=== PATIENT | female | born 1990 | race Caucasian/White ===

== ENCOUNTER 2022-07-06 12:15 | Outpatient (CLI) | payer OTHER, SELFPAY ==
--- NOTE | 2022-07-06 12:15 | CRLHL7_ITS ---
For Patients: As a result of the Century Cures Act, medical imaging exams and procedure reports are released immediately into your electronic medical record. You may view this report before your referring provider. If you have questions, please contact your health care provider. INDICATION: First trimester scan, establish dates. COMPARISON: None. TECHNIQUE: Real-time renner-scale imaging of the pelvis was performed. FINDINGS: Sonographic imaging demonstrates a single living intrauterine gestation. The embryo demonstrates a regular cardiac rate measuring 171 beats per minute. The embryo`s crown-rump length measurement of 2.3 cm corresponds to a gestational age of 9 weeks 0 days with a sonographic due date of February 08, 2023. There is a normal-appearing yolk sac measuring up to 3.1 mm. There are no gross abnormalities noted within the embryo at this early state of development. The placenta has not yet developed. The gestational sac has a normal appearance. The amount of fluid within the sac appears appropriate for gestational age. The cervix is closed. The myometrium appears normal. The ovaries are of normal size. The right ovary measures 3.1 x 2.0 x 2.6 cm and contains a small corpus luteum cyst of . The left ovary measures 3.5 x 1.8 x 1.8 cm. There is a small amount of subchorionic hemorrhage inferior to the gestational sac measuring 3 x 6 x 18 mm. There are no suspicious fluid collections noted in the cul-de-sac. IMPRESSION: Normal first trimester OB ultrasound exam. Gestational age calculated at 9 weeks 0 days with a sonographic due date of February 08, 2023. Dictated by Dane Olivo MD @ 07/06/2022 7:00:03 PM (Electronically Signed)
== END 2022-07-06 12:16 | disposition home or self-care (01) ==
LOC: US 12:18
PROVIDERS: Visit Provider Registered Nurse
DX: Z34.91 Encounter for supervision of normal pregnancy, unspecified, first trimester (principal); Z3A.09 9 weeks gestation of pregnancy; O20.9 Hemorrhage in early pregnancy, unspecified
CPT/HCPCS: 76817; 86592; 86703; 86762; 86787; 86803; 86850; 86900; 86901; 87086; 87340; 87491; 87591

== ENCOUNTER 2022-09-01 11:28 | Outpatient (CLI) | payer OTHER, SELFPAY ==
[2022-09-04 08:04] LABS: Dating Other; Family Hx Neural Tube Defect No; Insulin Req Maternal Diabetes No; Maternal Race Nonblack; Maternal Screen Interpretation Screen Neg; MoM for AFP 0.87; Number of Fetuses Singleton; Patient's AFP 32 ng/mL; Patient's DIA 166 pg/mL; Smoking No
[2022-10-12 08:11] LABS: Client Provided Matern Weight 170
[2022-10-12 08:14] LABS: Client Provid Current Smoking NO; Client Provid Diabetic Status NO; Client Provided # of Fetuses 1; Client Provided Valp/Carb NO
[2022-10-12 08:15] LABS: Client Provid Prev TrisomyPreg NO; Client Provided Fam Hx of NTD NO; Client Provided InVitro Fertil NO; Client Provided Rpt Specimen NO
== END 2022-09-01 11:29 | disposition home or self-care (01) ==
PROVIDERS: Visit Provider Obstetrics & Gynecology
DX: Z34.92 Encounter for supervision of normal pregnancy, unspecified, second trimester (principal); Z3A.17 17 weeks gestation of pregnancy
CPT/HCPCS: 81511

== ENCOUNTER 2022-09-27 13:53 | Outpatient (CLI) | payer OTHER, SELFPAY ==
--- NOTE | 2022-09-27 14:00 | CRLHL7_ITS ---
For Patients: As a result of the Century Cures Act, medical imaging exams and procedure reports are released immediately into your electronic medical record. You may view this report before your referring provider. If you have questions, please contact your health care provider. INDICATION: Evaluate anatomy. COMPARISON: none TECHNIQUE: Real time renner scale imaging of the fetus was performed as well as color Doppler analysis of the umbilical vessels. FINDINGS: Sonographic imaging demonstrates a single living intrauterine gestation. Fetus demonstrates a regular cardiac rate of 147 beats per minute. Fetus has a vertex position. The placenta lies anterior fundal without evidence of placenta previa. The edge of the placenta is located 8.2 cm from the internal cervical os. Amniotic fluid volume appears normal. Single deepest vertical pocket: 4.3 cm. The cervix is closed and measures 4.7 cm in length. The composite ultrasound gestational age is calculated at 20 weeks 4 days with an estimated sonographic due date of 02/10/2023. The estimated weight is 361 grams which lies at the 29th %. The following biometric measurements were obtained: Biparietal diameter: 4.6 cm/20 weeks 0 days 16th% Head circumference: 18.0 cm/20 weeks 3 days 24th% Abdominal circumference: 16.4 cm/21 weeks 3 days 63rd% Femur length: 3.1 cm/19 weeks 4 days 8th% The HC/AC ratio measures: 1.10 range (1.07-1.25) On anatomic survey, there is a normal appearance of the cerebral ventricles, cavum septi pellucidi, cisterna magna and cerebellum. The nose, lips, and facial profile appear normal. The cervical, thoracic and lumbar spine are well visualized and appear normal. Echogenic intracardiac focus within the left ventricle. The left and right ventricular outflow tracts appear normal. The diaphragm and stomach appear normal. The kidneys and bladder also appear normal. There is a normal three-vessel cord and there is an eccentric cord insertion site. The four extremities appear normal. IMPRESSION: Concordance of clinical and sonographic dating. Intracardiac echogenic focus within the left ventricle. Remainder of the anatomic survey is normal. Level 2 ultrasound should be considered. Dictated by Monico Yeager MD @ 09/28/2022 9:40:36 AM (Electronically Signed)
== END 2022-09-27 13:54 | disposition home or self-care (01) ==
LOC: US 13:54
PROVIDERS: Visit Provider Obstetrics & Gynecology
DX: Z34.92 Encounter for supervision of normal pregnancy, unspecified, second trimester (principal); Z3A.20 20 weeks gestation of pregnancy
CPT/HCPCS: 76805

== ENCOUNTER 2022-11-17 09:56 | Outpatient (CLI) | payer OTHER, SELFPAY | END 2022-11-17 09:57 | disposition home or self-care (01) | LOC: NFLDREF 11-19 04:38 | PROVIDERS: PCP Obstetrics & Gynecology; Referring Provider Obstetrics & Gynecology; Visit Provider Obstetrics & Gynecology | DX: Z34.93 Encounter for supervision of normal pregnancy, unspecified, third trimester (principal); Z3A.28 28 weeks gestation of pregnancy | CPT/HCPCS: 86592 ==

== ENCOUNTER 2023-02-01 07:11 | Inpatient (IN) | payer OTHER, SELFPAY ==
[2023-02-01] VITALS (26 sets, daily range): BP systolic 101–123; BP diastolic 50–72; PULSE 63–128; RESP 16–18; TEMP 36.2–36.9; O2SAT 94–100; BMI 33.4
[2023-02-01] MEDS: LACTATED RINGERS 1000 ML 1,000 ML IV ×3 (07:30→12:19)
[2023-02-01 07:42] LABS: Hemoglobin* 10.5 gm/dL (12.0-16.0)
--- NOTE | 2023-02-01 08:36 | W.ANESCHARGE ---
Anesthesia Charges Start Date/Time Anesthesia Start Date: 02/01/23 Anesthesia Start Time: 09:19 Stop Date/Time Anesthesia Stop Date: 02/01/23 Anesthesia Stop Time: 10:58
--- NOTE | 2023-02-01 09:20 | P.LDBA_ITS ---
Subjective History of Present Illness Time Seen by Provider: 09:20 Date Seen: 02/01/23 Narrative: Yen is being admitted to Labor and Delivery for a scheduled repeat low- transverse . She is a 32 year old at 39 and 0/7 weeks gestation. Her full history and physical was dictated by Dr. Rupal Shields MD on 01/12/2023. Please see this for details. OB PROBLEM LIST: ANGIE: 02/08/2023 by LMP Spouse: Zoran. Daughters: Marleni and Minna. Baby: [place] Gender. contraception: Mirena IUD 1. H/o x 2: both delivered at [facility] * First was for arrest of dilation, 2nd was a scheduled repeat * Plan repeat : Scheduling request form sent out on 11/02/22, requested Tuesday02/01/23 with [facility]. 2. History of anxiety/depression: * Not treated in her 1st * Was treated with sertraline in her 2nd which she did not feel was very helpful. (50mg dose) * Prescription for sertraline 50mg QD on 01/05/23. * Plan to increase dose to 100mg discharge from the hospital or at her 2 week pp visit if needed. 3. Single intracardiac echogenic focus on 20 week ultrasound * Normal quadruple screen on 09/01/2022: Downs 1/766, ONTD < 1/10,000, Trisomy 18 < 1/10,000 * Declined LVL 2 USN. OB - Problem Based A/P Additional Plan (1) Status post repeat low transverse section: Status: Acute Plan 1. Will be heading to the operating room momentarily. OB Exam Physical Exam Vital signs: Temp Pulse Resp BP Pulse Ox 98.5 F 75 18 123/64 96 02/01/23 07:40 02/01/23 07:40 02/01/23 07:40 02/01/23 07:40 02/01/23 07:40 Narrative: GENERAL APPEARANCE: Pleasant, [race], well-groomed woman in no acute distress. VITAL SIGNS: as noted in nursing notes LUNGS: Clear to auscultation bilaterally without wheezes, rales or rhonchi. HEART: Regular rate and rhythm with normal S1 and S2. No gallop, rub or murmur. ABDOMEN: Gravid. Soft, nontender, nondistended, with normal bowels sounds throughout. EXTREMITIES: No cyanosis, clubbing, or edema. No varicosities. NEUROLOGIC: Normal gait and balance. Normal deep tendon reflexes at bilateral patella 2+/2, equal without clonus. PSYCHIATRIC: alert and oriented x3. Normal speech pattern, eye contact and affect. SKIN: Warm, dry, and well perfused. Good turgor. No lesions, nodules or rashes.
--- NOTE | 2023-02-01 09:23 | P.PCN_ITS ---
Procedure Note Time Seen by Provider: : Date Seen: 02/01/23 Date of procedure: 02/01/23 Will [facility] bill your pro fee for this procedure?: Yes Procedure: Preoperative diagnosis: 32-year-old 3 para 2001 at 39 and 0/7 weeks admitted for a scheduled repeat low transverse section. Postoperative diagnosis: Same Procedure: Repeat low-transverse section. Anesthesia: Spinal Surgeon: Rupal Shields MD Senior Sales Administrator: LG Toro Quantitative blood loss: 880 mL IVF: 2500 mL UOP: 50 mL, clear urine at the end of the procedure Drain(s): Vuong to gravity. Specimen: None Findings: A live female was delivered from the direct OA position at 9:57 a.m.. Apgars were 5 at 1 min. , 7 at 5 min. and 8 at 10 minutes, respectively. Infant weight: Pending. Nuchal cord(s): No. The placenta was delivered spontaneous and complete at 9:59 a.m. Amniotic fluid: Clear, large amount. Normal uterus, fallopian tubes and ovaries were noted. Other findings: Thick adhesions of the rectus muscles to the fascia and bladder reflection. The subcutaneous tissue was also very scarred. Mild uterine atony was noted after delivery of the placenta which was treated with fundal massage, 40 units Pitocin in 1 L IV fluid wide open and 1 dose of Methergine 0.2 mg IM. Procedure: Yen was taken to the OR where spinal anesthetic was found be adequate. A Vuong catheter was placed. The patient was then placed in the dorsal supine position with a leftward tilt. She was then prepped and draped in a normal sterile manner. A Pfannenstiel skin incision was made and carried through sharply to the underlying layer of fascia. Fascia was incised in the midline and this incision carried laterally with Peterson scissors. The superior aspect of fascial incision was grasped with Christopher clamps, tented up, and the rectus muscles dissected off with a combination of blunt, and sharp dissection. The rectus muscles were in the midline. The peritoneum was identified, grasped with 2 Kacey clamps and entered sharply with Metzenbaum scissors. This opening was extended with a combination of sharp dissection in layers and blunt pressure. An Hiram-O self-retaining retractor was placed. A bladder flap was not created. Uterus was incised in a low transverse manner in the midline. This incision carried laterally with blunt pressure on the inferior and superior aspects of the uterine incision. The amniotic sac was ruptured. The 's head and body were delivered atraumatically. The infant was shown to the patient and her support person. The umbilical cord was clamped and cut after a 32nd delay. The was then handed to waiting nursing staff, the nursing staff called for a pediatric staff to assess the due to long transition period. The placenta was delivered spontaneously. The uterus was cleared of clots and debris. The uterine incision was re-approximated with the uterus in vivo. The 1st layer using 0-Vicryl in a running, locked manner. The 2nd layer using 0-Monocryl in a running, vertical, imbricating layer. Additional sutures needed for hemostasis: Yes, 3 figure of 8 sutures using 2-0 chromic. Erica was applied to the uterine incision. Excellent hemostasis was confirmed. The Hiram retractor was removed. The peritoneum and rectus muscles were not reapproximated. The rectus muscles were then closely inspected to verify hemostasis. Hemostasis was obtained with bipolar cautery. The fascia was then reapproximated using 0-Maxon loop in a running manner. The subcutaneous tissue was then irrigated with saline and hemostasis obtained with bipolar cautery. The scarred, subcutaneous tissue was undermined with bipolar cautery. The subcutaneous tissue was reapproximated using 3-0 plain gut interrupted sutures. The skin was reapproximated using 4-0 Monocryl in a running subcuticular manner. Exophin skin adhesive and a Mepiplex dressing were applied. The patient tolerated this procedure well. Sponge, lap and instrument counts were correct x2 active to the procedure. Patient was taken to the recovery area in stable condition. The patient received 2 g of IV Ancef prior to skin incision.
[2023-02-01] MEDS: CEFAZOLIN 2 GM INJ IVP (09:30)
--- NOTE | 2023-02-01 11:01 | W.ANESCHARGE ---
Anesthesia Charges Start Date/Time Anesthesia Start Date: 02/01/23 Anesthesia Start Time: 09:19 Stop Date/Time Anesthesia Stop Date: 02/01/23 Anesthesia Stop Time: 10:58
--- NOTE | 2023-02-01 11:08 | W.PM.NB ---
Nerve Block Nerve Block Time Seen by Provider: 10:50 Date Seen: 02/01/23 Type of block requested by surgeon for post-operative analgesia: TAP Side: bilateral Time out performed: Yes Verification of patient name: Yes Verification of date of : Yes Site marking: site marked Name of person performing procedure: Jaime Continuous monitoring Was continuous monitoring of O2 sat, B/P, alarm security or surveillance monitor, recorded every 15 minutes?: Yes Procedure Checklist: sterile prep, needles and gloves Ultrasound guided. Images saved: Yes Medications given in 5ml increments after negative aspiration: Marcaine %: 0.25 mL: 30 Needle gauge: 20 and Exparel mL: 10 Patient tolerated procedure well: Yes Additional comments: Needle noted adjacent to nerve Block Charges Block Charge (with Pro Fee): TAP Bilateral Use of Ultrasound Machine for Block: Yes- US Guidance/pain block
[2023-02-01] MEDS: KETOROLAC 30 MG/ML inj IVP (17:20)
[2023-02-01] MEDS: METHYLERGONOVINE MALEATE 0.2 MG TABLET PO (17:42)
[2023-02-01] MEDS: miSOPROStoL 800 MCG/4 TABLET 600 MCG PR (17:42)
[2023-02-01 17:47] LABS: Basophils Percent Auto 0.2 % (0.0-3.0); Eosinophils Percent Auto 0.1 % (0.0-7.0); Immature Granulocytes Pct Auto 0.9 %; Lymphocytes Percent Auto 7.4 % (20-44); Mean Corpuscular HGB Conc 33 gm/dL (32-36); Mean Corpuscular Hemoglobin 28 pg (26-34); Mean Corpuscular Volume 83 fL (80-100); Monocytes Percent Auto 7.8 % (0.0-11.0); Neutrophils Percent Auto 83.6 % (42.0-72.0); Platelet Count* 238 K/uL (140-440); RDW Coefficient of Variation % 12.9 % (11.5-15.5); Red Blood Count 3.26 m/uL (4.00-5.20); White Blood Count* 15.19 K/uL (4.50-11.00)
[2023-02-01 18:05] LABS: Slide Review Acceptable Review (Acceptable); Slide Review Reflex No
[2023-02-01 18:30] LABS: INR 1.06 (0.91-1.10); Partial Thromboplastin Time* 28 Seconds (23-33); Prothrombin Time 14.4 Seconds
[2023-02-01 18:31] LABS: Fibrinogen* 260 mg/dL (200-450)
[2023-02-01] MEDS: FERROUS SULFATE 325 MG TABLET 650 MG PO (20:38)
[2023-02-02] VITALS (12 sets, daily range): BP systolic 101–109; BP diastolic 54–72; PULSE 77–81; RESP 16; TEMP 36.4–36.6; O2SAT 94–96
[2023-02-02] MEDS: METHYLERGONOVINE MALEATE 0.2 MG TABLET PO ×2 (00:06→05:20)
[2023-02-02] MEDS: KETOROLAC 30 MG/ML inj IVP ×4 (00:07→18:27)
[2023-02-02 05:14] LABS: Hemoglobin* 8.8 gm/dL (12.0-16.0)
--- NOTE | 2023-02-02 07:15 | PM.OBPNCS1 ---
OB - PN: A/P Assessment and Plan (1) Status post repeat low transverse section: Status: Acute Plan day: 1 Plan: routine postop care Comments: Assessment/Plan G 3 P 3 status post repeat , complicated by increased bleeding PP. 1. ?Continue route PP cares 2. ?. ?May see if desired 3. ?Anticipate discharge home tomorrow or the following day per pt preference 4. ?Acute anemia. ?Iron supplement ordered OB - PN: Subj Subjective Time Seen by Provider: 07:15 Date Seen: 02/02/23 Interval history: Yen is a 32 y.o. who was admitted to [facility] & [facility] for repeat . ?She had a complicated by increased bleeding PP. ? Narrative: The patient feels well. ?The pain is well controlled with current medications. ?She has no new complaints. ?She is breast feeding and reports things are overall going well.? Is supplementing to help keep baby's sugars up. the patient has done well.? Vitals have been stable.? She has remained afebrile.? Has a good appetite, is tolerating a general diet. ?She is voiding without difficulty.? She is passing gas and has not had a bowel movement.? She is ambulating and denies any dizziness.? Has Small amount of rubra lochia. OB - PN: Obj Exam Physical Exam: Vital signs: Temp Pulse Resp BP Pulse Ox O2 Del Method 97.6 F 77 16 103/62 94 Room Air 02/02/23 00:20 02/02/23 04:54 02/02/23 04:54 02/02/23 04:54 02/02/23 04:54 02/02/23 04:54 Narrative: VSS. Afebrile GENERAL APPEARANCE: ?normal affect, alert, no distress MOOD: ?appropriate HEENT: normocephalic, neck supple, full ROM CHEST: ?Symmetrical chest wall movement. ?Normal respiratory effort. ?Clear to auscultation HEART: ?regular rate and rhythm ABDOMEN: ?soft, non-tender. Uterine fundus is firm, at Umbilicus, Midline and is appropriate for the stage of recovery. ?Bowel sounds present. EXTREMITIES: ?normal and trace edema SKIN: warm, dry. Dressing on, clean/dry/intact. No signs of infection noted. Urinary Catheter Management: Urethral: Cath placed during this visit: yes, but has since been removed by the nurse Reason for continuing: decision to DC catheter Insertion date: 02/01/23 Insertion time: 09:28 Removal date: 02/01/23 Removal time: 21:00 OB - PN: Obj Data Labs Labs: Laboratory Results - last 24 hr 02/01/23 02/01/23 02/02/23 07:36 17:39 05:05 WBC 15.19 H RBC 3.26 L Hgb 10.5 L 9.0 L 8.8 L Hct 27.0 L MCV 83 MCH 28 MCHC 33 RDW Coeff of Maria M 12.9 Plt Count 238 Neut % (Auto) 83.6 H Lymph % (Auto) 7.4 L [place] % (Auto) 7.8 Eos % (Auto) 0.1 Baso % (Auto) 0.2 Neut # (Auto) 12.70 H Lymph # (Auto) 1.10 [place] # (Auto) 1.20 H Eos # (Auto) 0.00 Baso # (Auto) 0.00 Diff Slide Review Acceptable Review INR 1.06 APTT 28 Fibrinogen 260 Blood Type O Positive Antibody Screen NEGATIVE
[2023-02-02] MEDS: ACETAMINOPHEN 500 MG TABLET 1000 MG PO ×3 (07:44→21:18)
[2023-02-02] MEDS: DOCUSATE SODIUM 100 MG CAPSULE PO (08:50)
[2023-02-02] MEDS: SERTRALINE 50 MG TABLET PO (08:50)
--- NOTE | 2023-02-02 12:06 | SUR.PHASEI ---
Phase one information filled out per this nurse, but done per Lukasz RN and preceptor Rosario FUENTES.
[2023-02-02] MEDS: IBUPROFEN 600 MG TABLET PO (23:09)
[2023-02-03] MEDS: ACETAMINOPHEN 500 MG TABLET 1000 MG PO ×2 (03:30→09:39)
[2023-02-03 03:37] VITALS: BP 114/71; PULSE 70; RESP 16; TEMP 36.3; O2SAT 96
[2023-02-03] MEDS: IBUPROFEN 600 MG TABLET PO ×2 (04:38→11:04)
--- NOTE | 2023-02-03 07:45 | P.DS_ITS ---
DS: Providers Provider Time Seen by Provider: 07:45 Date Seen: 02/03/23 Date of admission: 02/01/23 07:11 Primary care physician: Not a Local Provider Admitting Clinician: Rupal Shields MD Attending Physician on discharge: Rupal Shields MD DS: Diagnosis Discharge Diagnosis (1) Status post repeat low transverse section: Status: Acute Problem details: Girl. (2) Anemia due to acute blood loss: Status: Acute Exam Narrative: Exam Narrative: GENERAL APPEARANCE: Pleasant, , well-groomed woman in no acute distress. VITAL SIGNS: as noted in nursing notes HEAD: Normocephalic, atraumatic. LUNGS: Clear to auscultation bilaterally without wheezes, rales or rhonchi. HEART: Regular rate and rhythm with normal S1 and S2. No gallop, rub or murmur. ABDOMEN: Soft, nontender, nondistended, with normal bowels sounds throughout. Fundus is firm 1 cm below the umbilicus in the midline. CVA or flank tenderness. INCISION: Clean, dry and intact with sutures and skin adhesive. EXTREMITIES: No cyanosis, clubbing, or edema. No varicosities. NEUROLOGIC: Normal gait and balance. Normal deep tendon reflexes at bilateral patella 2+/2, equal without clonus. PSYCHIATRIC: alert and oriented x3. Normal speech pattern, eye contact and affect. SKIN: Warm, dry, and well perfused. Good turgor. No lesions, nodules or rashes. Const: Vital Signs, click to edit/add: Vital Signs - 24 hr 02/02/23 07:49 02/02/23 08:45 02/02/23 08:45 Temperature 97.8 F Pulse Rate [Pulse Oximeter] 78 Respiratory Rate 16 16 16 Blood Pressure [Le ft Arm] 101/54 L Pulse Oximetry 95 Oxygen Delivery Me thod Room Air 02/02/23 09:25 02/02/23 16:20 02/02/23 21:20 Temperature 97.6 F 97.7 F Pulse Rate [Pulse Oximeter] 81 79 Respiratory Rate 16 16 16 Blood Pressure [Le ft Arm] 102/60 109/69 Pulse Oximetry 95 96 Oxygen Delivery Me thod Room Air Room Air 02/03/23 03:37 Temperature 97.4 F L Pulse Rate [Pulse Oximeter] 70 Respiratory Rate 16 Blood Pressure [Le ft Arm] 114/71 Pulse Oximetry 96 Oxygen Delivery Me thod Room Air OB - DS: Summary Hospital Course Hospital Course: Yen is a 32 year old G 3 P 2002 now 3 at 39 and 0/7 weeks gestation that was admitted to the [facility] on 02/01/23 for scheduled repeat low-transverse section. She had an uncomplicated delivery. She delivered a viable female . She is breast feeding. the patient has done well. Her postoperative hemoglobin is 8.8, she is asymptomatic. She was anemic during her and will continue iron supplements a tell her hemoglobin is 12.0 or higher. Peripartum Data Procedures: Procedures Operation Date: 02/01/23 09:15 Actual Procedure Side Surgeon p Repeat Section Rupal Shields MD complications: none [place] Gender: Female Time Spent with Patient Time attestation: Total time spent providing and/or coordinating discharge services: Time spent: Less than 30 minutes Discharge Plan Discharge Disposition: Home, Self-Care Date of Admission: 02/01/23 07:11 Attending Provider on Discharge: Rupal Shields Primary Care Provider: Provider,Not a Local Condition: Stable Anticipated Discharge Date/Time: 02/03/23 15:30 Discharge Medications: New docusate sodium 100 mg Capsule 100 mg PO BID PRNQty: 100 0RF ibuprofen 600 mg Tablet 600 mg PO Q6H PRN (Reason: Pain) Qty: 30 0RF oxycodone 5 mg Tablet 5 mg PO TID PRN (Reason: Pain) Qty: 21 0RF Continued ferrous sulfate 325 mg (65 mg iron) tablet 325 mg PO Q OTHER DAY DHA 200 mg capsule 200 mg PO DAILY sertraline 50 mg tablet 50 mg PO QDAY Qty: 60 0RF Rx Instructions: Take 1/2 tab daily for 7 days then increase to 1 tablet daily. Discontinued calcium carbonate [Tums] 200 mg calcium (500 mg) tablet,chewable 200 mg PO BID Discharge Orders: Discharge Order (Routine); Ordered 02/03/23 Ordered By: Rupal Shields Patient Education: (DC) Additional Instructions: ACTIVITY RESTRICTIONS: * Nothing vaginally for 6 weeks: no tampons/intercourse * No driving while taking narcotic pain medication during the day. 1-2 weeks. Okay to be the passenger anytime. * Lifting restriction: Maximum of 20 pounds for 6 weeks. * High impact or core exercises: 6 weeks. * Submerge the incision in water (bath/pool/yuen): 2 weeks. * Off of work/school for a minimum of 8 weeks NO RESTRICTIONS for: * Walking * Going up/down stairs * Showering Symptoms to report to doctor: -Bleeding that saturates more than one pad per hour ?-Passing clots larger than the size of a golf ball ?-Pain not relieved by prescribed medication ?-Fever above 100.4 degrees Fahrenheit ?-A foul vaginal odor ?-Difficulty in emotions, mood and functions ?-Thoughts of hurting yourself and/or ?-Painful, reddened area in your breast ?-Any drainage, redness or tenderness in your IV/epidural site ?-Severe headache that doesn't improve after taking medications ?-Changes in vision, including temporary loss of vision, blurred vision, and/or light sensitivity ?-Upper abdominal pain (usually under ribs on the right side) ?-Decrease in urination or painful, frequent urinating ?-Chest pain ?-Shortness of breath ?-Tenderness or pain with redness and/swelling in the calf(s) of your leg Follow-up appointments: 1. 2 week visit: Screen for anxiety/depression, incision check, answer questions regarding care. 2. A 6 week visit for an annual physical exam. consultation services are available to all mothers and babies for the first year after delivery.? To make an appointment, please call [phone]. Activity Level: Other Discharge Diet: Regular Follow Up Appointments: [facility] [Provider Group] Rupal Shields MD [Staff Physician] - Provider,Not a Local [Primary Care Provider] - Forms: [facility] Info Instructions
[2023-02-03 08:20] VITALS: BP 112/69; PULSE 71; RESP 18; TEMP 36.4; O2SAT 96
[2023-02-03] MEDS: OXYCODONE 5 MG TABLET PO (08:35)
[2023-02-03] MEDS: SERTRALINE 50 MG TABLET PO (08:35)
[2023-02-03] MEDS: DOCUSATE SODIUM 100 MG CAPSULE PO (08:36)
== END 2023-02-03 12:50 | disposition home or self-care (01) | DRG 787 ==
PROVIDERS: Obstetrics & Gynecology; Admitting Provider Obstetrics & Gynecology; Visit Provider Obstetrics & Gynecology
PROC: 10D00Z1 Extraction of Products of Conception, Low, Open Approach (ICD-10-PCS; CPT 59514; principal; 2023-02-01 09:15)
DX: O34.211 Maternal care for low transverse scar from previous cesarean delivery (principal); D62 Acute posthemorrhagic anemia; O72.1 Other immediate postpartum hemorrhage; O90.81 Anemia of the puerperium; Z3A.39 39 weeks gestation of pregnancy; Z37.0 Single live birth; G89.18 Other acute postprocedural pain
CPT/HCPCS: 01961; 36415; 64488; 76942; 85018; 85025; 85384; 85610; 85730; 86850; 86900; 86901; A9270; C9290; J0690; J1100; J1885; J2210; J2274; J2370; J2405; J2590; J2765; J3010; J3490; J7120

== ENCOUNTER 2023-02-08 15:14 | Emergency (ER) | payer OTHER, SELFPAY ==
[2023-02-08 15:27] VITALS: BP 127/68; PULSE 51; RESP 16; TEMP 36.1; O2SAT 98; BMI 31.0
--- NOTE | 2023-02-08 15:35 | CRLHL7_ITS ---
For Patients: As a result of the Century Cures Act, medical imaging exams and procedure reports are released immediately into your electronic medical record. You may view this report before your referring provider. If you have questions, please contact your health care provider. INDICATION: Pain swelling. Recent , on 02/01. TECHNIQUE: CT abdomen and pelvis acquired with 85 cc Isovue 370 IV contrast. COMPARISON: None. FINDINGS: Lower chest: Scattered atelectasis. Liver: Tiny hypodensities too small to characterize. Normal in size and attenuation. No suspicious masses. Gallbladder and bile ducts: Unremarkable. No stones or inflammation. No biliary dilatation. Pancreas: Unremarkable. No mass or inflammation. Spleen: Unremarkable. Normal in size. No masses. Adrenal glands: Unremarkable. No nodules. Kidneys: Unremarkable. No suspicious masses, stones, or hydronephrosis. GI tract: Unremarkable. Normal in caliber. No sign of mass or inflammation. Normal appendix. Vasculature: Abdominal aorta is normal in caliber. Mesenteric arteries are patent. Lymph nodes: No lymphadenopathy. Peritoneum/Abdominal Wall: Focal inflammatory changes along the anterior pelvic wall subcutaneous tissues with a 12.5 x 2.0 x 5.1 centimeter developing fluid collection. Pelvis: Bulky heterogeneous uterus not entirely unexpected in the state. Fluid-filled distended endometrium with multiple locules of air. Bones: Unremarkable for age. IMPRESSION: Focal inflammatory changes along the anterior pelvic wall subcutaneous tissues with 12.5 centimeter developing fluid collection. Sterility cannot be assessed by imaging. Recommend correlation with physical examination. Fluid-filled distended endometrium with multiple locules of air, not entirely unexpected given state. Endometritis is not entirely excluded. Recommend clinical correlation. Pelvic ultrasound may be of benefit. Otherwise, no intra-abdominal/pelvic abnormality including intra-abdominal/pelvic drainable fluid collections. Please note that all CT scans at this facility use dose modulation, iterative reconstruction, and/or weight-based dosing when appropriate to reduce radiation dose to as low as reasonably achievable. Dictated by Alex Del Angel MD @ 02/08/2023 4:46:35 PM (Electronically Signed)
--- NOTE | 2023-02-08 16:16 | ED_ITS ---
HPI - General Adult General Chief complaint: Post Op Complication Stated complaint: Needs a CT Time Seen by Provider: 02/08/23 15:34 Source: patient Mode of arrival: ambulatory Limitations: no limitations History of Present Illness HPI narrative: 32-year-old female coming in today complaining swelling around her operative incision. Patient is postop day 7 status post repeat low transverse . Noticed swelling around the incision site. Denies any systemic symptoms. Was seen by the berry picker earlier today and a CT scan was recommended, unfortunately CT scan cannot be done on an outpatient basis without a prior authorization which can take several days therefore patient was sent to the ER for evaluation. Related Data Home Medications Medication Instructions Recorded Confirmed docosahexaenoic acid 200 mg 200 mg PO DAILY 07/06/22 02/08/23 capsule ( DHA) ferrous sulfate 325 mg (65 mg 325 mg PO Q OTHER DAY 01/17/23 02/08/23 iron) tablet Previous Rx's Medication Instructions Recorded sertraline 50 mg tablet 50 mg PO QDAY #60 tabs 01/05/23 docusate sodium 100 mg capsule 100 mg PO BID PRN #100 caps 02/01/23 ibuprofen 600 mg tablet 600 mg PO Q6H PRN Pain #30 tabs 02/01/23 oxycodone 5 mg tablet 5 mg PO TID PRN Pain #21 tabs 02/01/23 Allergies Allergy/AdvReac Type Severity Reaction Status Date / Time No Known Drug Allergies Allergy Verified 02/08/23 14:29 Review of Systems Status of ROS: Reports: 6 or more systems reviewed and unremarkable except as noted in History and below PFSH [facility] Medical History (Updated 02/08/23 @ 17:30 by Nataliya Perales MD) Anemia affecting in third trimester ?O99.013 - Anemia complicating , third trimester (ICD-10) Depression ?F32.A - Depression, unspecified (ICD-10) History of depression ?Z87.59 - Personal history of other complications of , childbirth and the puerperium (ICD-10) ?Z86.59 - Personal history of other mental and behavioral disorders (ICD-10) Surgical History Status post repeat low transverse section (02/01/23) ?Z98.891 - History of uterine scar from previous surgery (ICD-10) S/P section ?Z98.891 - History of uterine scar from previous surgery (ICD-10) Social History What is your current living situation: I presently have a place to live Problems where you live: no known problems In the past 12 months, utilities in danger of being shut off: no In the past 12 mos, have been you worried that your food would run out before you had money to buy more?: never true In the past 12 mos, the food you bought just didn't last and you didn't have money to buy more?: never true Smoking Status: Never smoker How often does anyone, including family, friends and others, physically hurt you : How often does anyone, including family, friends and others, insult or talk down to you: How often does anyone, including family, friends and others, threaten you with harm: How often does anyone, including family, friends and others, scream or curse at you: Little interest or pleasure in doing things: not at all Feeling down, depressed, or hopeless: several days Exam Narrative: Exam Narrative: Well-nourished well-developed patient in no acute distress. Alert and oriented. Answers questions appropriately. Mood and affect are appropriate. Thoughts are goal oriented and rational. No tangential or magical thinking noted. Patient speaks in full sentences without needing to catch her breath. HEENT: Normocephalic atraumatic. Pupils are equally round reactive to light. Extraocular muscles are intact. Conjunctivae are moist without any icterus noted. Moist mucous membranes. Abdomen: Soft and nondistended. A lot of swelling around the incision site extending onto the mons. Skin is intact and no drainage is noted. Const: Vital Signs, click to edit/add: Vital Signs - 24 hr 02/08/23 15:27 Temperature 97 F L Pulse Rate [Pulse Oximeter] 51 L Respiratory Rate 16 Blood Pressure [Ri ght Upper Arm] 127/68 Pulse Oximetry 98 Oxygen Delivery Me thod Room Air Course Course Hospital Course: CT shows a large fluid collection, unclear the source of fluid. Did consult with Dr. Ford who will have the patient follow up tomorrow for drainage of the area. Dr. Loud did come down and speak to the patient and set this up. CBC drawn and pending at this time. Vital Signs Vital signs: Initial Vital Signs Temperature 97 F L 02/08/23 15:27 Temperature Source Temporal Artery Scan 02/08/23 15:27 Pulse Rate 51 L 02/08/23 15:27 Respiratory Rate 16 02/08/23 15:27 Blood Pressure 127/68 02/08/23 15:27 Blood Pressure Mean 87 02/08/23 15:27 Blood Pressure Position Sitting 02/08/23 15:27 Pulse Oximetry 98 02/08/23 15:27 Oxygen Delivery Method Room Air 02/08/23 15:27 Vital Signs Temperature 97 F L 02/08/23 15:27 Pulse Rate 51 L 02/08/23 15:27 Respiratory Rate 16 02/08/23 15:27 Blood Pressure 127/68 02/08/23 15:27 Pulse Oximetry 98 02/08/23 15:27 Oxygen Delivery Method Room Air 02/08/23 15:27 Temperature 97 F L 02/08/23 15:27 Pulse Rate 51 L 02/08/23 15:27 Respiratory Rate 16 02/08/23 15:27 Blood Pressure 127/68 02/08/23 15:27 Pulse Oximetry 98 02/08/23 15:27 Oxygen Delivery Method Room Air 02/08/23 15:27 Medical Decision Making MDM Narrative Medical decision making narrative: 32-year-old female with a postop fluid collection at the site of the incision. Will follow-up with OBGYN tomorrow. Imaging Data CT scan - abdomen: Attestation: I have reviewed the pertinent imaging results. Radiologist's impression: CT abdomen and pelvis acquired with 85 cc Isovue 370 IV contrast. COMPARISON: None. FINDINGS: Lower chest: Scattered atelectasis. Liver: Tiny hypodensities too small to characterize. Normal in size and attenuation. No suspicious masses. Gallbladder and bile ducts: Unremarkable. No stones or inflammation. No biliary dilatation. Pancreas: Unremarkable. No mass or inflammation. Spleen: Unremarkable. Normal in size. No masses. Adrenal glands: Unremarkable. No nodules. Kidneys: Unremarkable. No suspicious masses, stones, or hydronephrosis. GI tract: Unremarkable. Normal in caliber. No sign of mass or inflammation. Normal appendix. Vasculature: Abdominal aorta is normal in caliber. Mesenteric arteries are patent. Lymph nodes: No lymphadenopathy. Peritoneum/Abdominal Wall: Focal inflammatory changes along the anterior pelvic wall subcutaneous tissues with a 12.5 x 2.0 x 5.1 centimeter developing fluid collection. Pelvis: Bulky heterogeneous uterus not entirely unexpected in the state. Fluid-filled distended endometrium with multiple locules of air. Bones: Unremarkable for age. IMPRESSION: Focal inflammatory changes along the anterior pelvic wall subcutaneous tissues with 12.5 centimeter developing fluid collection. Sterility cannot be assessed by imaging. Recommend correlation with physical examination. Fluid-filled distended endometrium with multiple locules of air, not entirely unexpected given state. Endometritis is not entirely excluded. Recommend clinical correlation. Pelvic ultrasound may be of benefit. Otherwise, no intra-abdominal/pelvic abnormality including intra- abdominal/pelvic drainable fluid collections. Discharge Plan Discharge Clinical Impression: section wound complication Patient Disposition: Home, Self-Care Condition: Stable Additional Instructions: Follow-up as scheduled per Dr. Fodr. Prescriptions: No Action ferrous sulfate 325 mg (65 mg iron) tablet 325 mg PO Q OTHER DAY DHA 200 mg capsule 200 mg PO DAILY sertraline 50 mg tablet 50 mg PO QDAY Qty: 60 0RF Rx Instructions: Take 1/2 tab daily for 7 days then increase to 1 tablet daily. docusate sodium 100 mg Capsule 100 mg PO BID PRNQty: 100 0RF ibuprofen 600 mg Tablet 600 mg PO Q6H PRN (Reason: Pain) Qty: 30 0RF oxycodone 5 mg Tablet 5 mg PO TID PRN (Reason: Pain) Qty: 21 0RF Follow Up/Referrals: Provider,Not a Local [Primary Care Provider] - Stand Alone Forms: [employer] Info Instructions
[2023-02-08 17:46] LABS: Basophils Absolute Auto 0.03 K/uL (0.00-0.30); Basophils Percent Auto 0.4 % (0.0-3.0); Eosinophils Absolute Auto 0.09 K/uL (0.00-0.50); Eosinophils Percent Auto 1.2 % (0.0-7.0); Hematocrit 28.5 % (33.0-51.0); Hemoglobin* 8.9 gm/dL (12.0-16.0); Immature Granulocytes Abs Auto 0.09 K/uL (0.00-0.30); Immature Granulocytes Pct Auto 1.2 %; Lymphocytes Absolute Auto 1.72 K/uL (0.90-2.90); Lymphocytes Percent Auto 22.1 % (20-44); Mean Corpuscular HGB Conc 31 gm/dL (32-36); Mean Corpuscular Hemoglobin 27 pg (26-34); Mean Corpuscular Volume 87 fL (80-100); Monocytes Percent Auto 9.3 % (0.0-11.0); Neutrophils Absolute Auto 5.12 K/uL (1.7-7.0); Neutrophils Percent Auto 65.8 % (42.0-72.0); Platelet Count* 372 K/uL (140-440); RDW Coefficient of Variation % 13.8 % (11.5-15.5); Red Blood Count 3.29 m/uL (4.00-5.20); White Blood Count* 7.77 K/uL (4.50-11.00)
[2023-02-08 17:50] LABS: Slide Review Reflex No
== END 2023-02-08 17:44 | disposition home or self-care (01) ==
PROVIDERS: Emergency Provider Family Medicine
DX: O90.0 Disruption of cesarean delivery wound (principal)
CPT/HCPCS: 36415; 74177; 85025; 99284; Q9967

== ENCOUNTER 2023-02-09 11:04 | Outpatient (CLI) | payer OTHER, SELFPAY ==
--- NOTE | 2023-02-09 11:15 | CRLHL7_ITS ---
For Patients: As a result of the Century Cures Act, medical imaging exams and procedure reports are released immediately into your electronic medical record. You may view this report before your referring provider. If you have questions, please contact your health care provider. Ultrasound-guided aspiration of postoperative fluid collection CLINICAL HISTORY: Status post section 8 days prior with fluid collection beneath the skin incision. COMPARISON STUDIES: CT abdomen and pelvis 02/08/2023 TECHNIQUE: The procedure, risks, and alternative therapies were discussed in detail, and written informed consent was obtained. A time out was performed to verify correct patient and procedure. A time out was performed to verify correct patient and procedure. The patient was placed supine on the ultrasound table. Limited ultrasound of the lower anterior abdominal wall was performed demonstrating circumscribed ovoid fluid collection in the subcutaneous fat. Needle entry tract was planned. The site was prepped and draped in the usual sterile fashion. All elements of maximum sterile barrier technique were used. Soft tissues were anesthetized with 1% lidocaine. Under intermittent ultrasound guidance, a Schoology catheter needle was advanced into the subcutaneous fluid collection. There was immediate return of bloody fluid. 60 cc of bloody fluid removed and a sample was sent to the lab for analysis. The skin incision was closed with Steri-Strips. An ice pack was positioned over the biopsy site. Post-biopsy instructions were reviewed with the patient, and a written copy was given to her. Findings: Large ovoid collection of fluid within the subcutaneous fat beneath the skin incision. Minimal residual fluid remained following the procedure. This appears to represent a sterile postoperative hematoma. IMPRESSION: Ultrasound-guided aspiration of postoperative hematoma. Dictated by Monico Yeager MD @ 02/09/2023 12:32:01 PM (Electronically Signed)
[2023-02-09 13:00] LABS: Mononuclear WBC Body Fluid* 63 %; Polynuclear WBC Body Fluid* 37 %; RBC, Body Fluid* 182000 Cells/uL; WBC, Body Fluid* 641 Cells/uL
[2023-02-09 13:04] LABS: BF Clarity* Cloudy; BF Color Grossly Bloody; BF Total Volume* 20
== END 2023-02-09 11:05 | disposition home or self-care (01) ==
LOC: US 11:05
PROVIDERS: PCP Radiology Diagnostic Radiology; Visit Provider Obstetrics & Gynecology
DX: O90.2 Hematoma of obstetric wound (principal)
CPT/HCPCS: 10160; 49406; 76942; 87070; 87205; 89051